=== PATIENT | male | born 1990 | race Caucasian/White ===

== ENCOUNTER → 2018-01-31 | Day surgery (SDC) | payer BC ==
[~2018-01-31] MED LIST: DICYCLOMINE HCL20 MG PO; PROPOFOL IV EMULSION 10 MG/ML 50 ML VIAL ONE
--- NOTE | 2018-01-31 16:18 | Operative Report ---
DATE OF PROCEDURE: January 31, 2018 REFERRING PHYSICIAN: Dr. Mauro Vargas. PROCEDURE PERFORMED: Colonoscopy with biopsies. INDICATIONS FOR COLONOSCOPY: Lower abdominal pain, intermittent diarrhea. MEDICATION: Patient was done under MAC. Please see anesthesiologist's note. PROCEDURE: With the patient in the left lateral decubitus position, the flexible fiberoptic Olympus colonoscope was inserted into the rectum with ease and advanced all the way to the cecum. Mucosa overlying the cecum appeared to be within normal limits. The ileocecal valve was intubated, and the scope was advanced into the terminal ileum. Biopsies were obtained. The scope was then withdrawn back into the colon. It was then withdrawn slowly. Mucosa overlying the ascending colon and transverse colon appeared to be within normal limits. The mucosa overlying the left colon revealed some patchy mild inflammatory changes, and multiple random biopsies were obtained. The scope was then retroflexed into the distal rectum and small internal hemorrhoids were noted, none of which was actively bleeding. The scope was then straightened out. The rectosigmoid area as well as the distal rectal area were decompressed. The scope was subsequently withdrawn. Patient tolerated the procedure well. IMPRESSION: 1. Mild patchy left-sided colitis. 2. Internal hemorrhoids, none actively bleeding. PLAN: Follow up histology. Follow up stool studies. Initiate Bentyl 20 mg 1 p.o. q.i.d. Job#: [id number] EV cc:MAURO VARGAS DO
[2018-01-31 16:27] LABS: WBC,FECAL (FECAL LACTOFERRIN) NEGATIVE (NEGATIVE)
[2018-02-01 15:09] LABS: C DIFFICILE TOXIN A&B AMP PROB NEGATIVE (NEGATIVE)
== END | disposition home or self-care (01) ==
LOC: OR 12:37
PROVIDERS: ATTEND Internal Medicine Gastroenterology
DX: K51.50 Left sided colitis without complications (principal); K59.00 Constipation, unspecified; K64.8 Other hemorrhoids; Z68.36 Body mass index [BMI] 36.0-36.9, adult
CPT/HCPCS: 45380; 83630; 83993; 87045; 87177; 87328; 87493